=== PATIENT | female | born 1945 | race Caucasian/White ===

== ENCOUNTER 2017-07-05 14:15 | Outpatient (CLI) | payer OTHER ==
[2017-07-05 18:54] LABS: HCT - HEMATOCRIT 39.5 % (37.0-47.0); HGB - HEMOGLOBIN 13.1 g/dL (12.0-16.0); MEAN CORPUSCULAR HGB CONC 33.3 g/dL (32.0-36.0); MEAN PLATELET VOLUME 8.2 fL (7.9-10.8); RED BLOOD COUNT 4.54 10^6/uL (4.20-5.40); RED CELL DISTRIBUTION WIDTH 13.6 % (12.0-15.0); WHITE BLOOD COUNT 7.1 x10^3/uL (4.8-10.8)
[2017-07-05 19:08] LABS: HEMOGLOBIN A1C 0.63 g/dL
[2017-07-05 19:23] LABS: ALBUMIN/GLOBULIN RATIO 1.2 (1.0-2.2); BILIRUBIN,TOTAL 0.5 mg/dL (0.2-1.0); BUN - BLOOD UREA NITROGEN 20 mg/dL (6-20); CALCIUM 9.4 mg/dL (8.5-10.3); CARBON DIOXIDE - CO2 27 mmol/L (21-32); CHLORIDE 101 mmol/L (101-111); CHOL/HDL RATIO 3.2 (<4.4); CHOLESTEROL 171 mg/dL; CREATININE 0.7 mg/dL (0.4-1.0); GFR - MDRD 83 (>89); GLUCOSE 100 mg/dL (70-100); HDL CHOLESTEROL 54 mg/dL; POTASSIUM 3.7 mmol/L (3.5-5.0); SODIUM 137 mmol/L (135-145)
[2017-07-05 19:29] LABS: BILIRUBIN,URINE NEGATIVE (NEGATIVE)
[2017-07-05 19:46] LABS: LDL/HDL RATIO 1.8 (<4.4); TRIGLYCERIDES 112 mg/dL; VLDL CHOLESTEROL 22 mg/dL
[2017-07-05 20:13] LABS: UR CULTURE IF IND NOT INDICATED; WBC,URINE 0-3 /HPF (0-5)
== END 2017-07-05 14:16 | disposition home or self-care (01) ==
LOC: LAB.F 14:15
DX: Z00.00 Encounter for general adult medical examination without abnormal findings (principal); M79.642 Pain in left hand; I10 Essential (primary) hypertension; E78.00 Pure hypercholesterolemia, unspecified; E11.9 Type 2 diabetes mellitus without complications
CPT/HCPCS: 36415; 80053; 80061; 81001; 82043; 82570; 83036; 84443; 85651; 86038; 86140; 86200; 86430; 87086

== ENCOUNTER 2018-09-05 11:12 | Day surgery (SDC) | payer OTHER ==
[2018-09-05] MEDS ORDERED: LACTATED RINGERS 1,000 ML IV ONE (11:31)
[2018-09-05] MEDS ORDERED: fentaNYL 250 MCG/5 ML VIAL IVP ONE (12:30)
[2018-09-05] MEDS ORDERED: MIDAZOLAM 2 MG/2 ML VIAL IVP ONE (12:30)
[2018-09-05 13:07] VITALS: BP 118/69
== END 2018-09-05 11:13 | disposition home or self-care (01) ==
LOC: SDS 11:12
PROVIDERS: ATTEND Internal Medicine
PROC: 0DJD8ZZ Inspection of Lower Intestinal Tract, Via Natural or Artificial Opening Endoscopic (ICD-10-PCS; principal; 2018-09-05 12:00)
DX: Z12.11 Encounter for screening for malignant neoplasm of colon (principal)
CPT/HCPCS: G0121; J3010; J7120